=== PATIENT | male | born 1970 | race Asian ===

== ENCOUNTER 2025-01-19 13:30 | Emergency (ER) | payer OTHER ==
[~2025-01-19] VITALS: Ht 172.7 cm; Wt 86.2 kg
[~2025-01-19 13:30] MED LIST: AMOX500T2 PO
[2025-01-19] MEDS ORDERED: ONDANSETRON HCL/PF 4 MG/2 ML VIAL ONE (13:50)
[2025-01-19] MEDS: ONDANSETRON HCL/PF 4 MG/2 ML VIAL IVP ONE (13:58)
[2025-01-19] MEDS: IV NS 0.9% 1,000 ML BAG IV ONE (14:00)
[2025-01-19] MEDS ORDERED: METOCLOPRAMIDE HCL 10 MG/2 ML VIAL ONE (14:17)
[2025-01-19 14:22] LABS: PLATELET COUNT (AUTO) 309 K/uL (150-450); RED BLOOD CELL COUNT(AUTO) 5.19 MIL/uL (4.5-6.0); RED CELL DISTRIBUTION WIDTH 13.4 % (11.5-15.0); WHITE BLOOD COUNT (AUTO) 11.1 K/uL (4.3-11.0)
[2025-01-19] MEDS ORDERED: IOHEXOL-350 100 ML VIAL IV ONE (14:22)
[2025-01-19] MEDS ORDERED: CT SWABBABLE VALVE TRANS SET 1 EA INFUS.SET MC ONE (14:23)
[2025-01-19 14:29] LABS: CALCIUM, SERUM 9.3 mg/dL (8.5-10.1); CREATININE 1.1 mg/dL (0.6-1.3); SODIUM SERUM 138 mmol/L (136-145); UREA NITROGEN, BLOOD 11 mg/dL (7-18)
[2025-01-19] MEDS: METOCLOPRAMIDE HCL 10 MG/2 ML VIAL IV ONE (14:30)
[2025-01-19] MEDS ORDERED: dexaMETHasone SOD PHOSPHATE 1 ML ONE (14:41)
[2025-01-19] MEDS ORDERED: MECLIZINE HCL 25 MG TABLET ONE (14:41)
[2025-01-19 14:42] LABS: ASPARTATE AMINOTRANSFERASE 23 U/L (15-37); TOTAL PROTEIN, SERUM 8.4 g/dL (6.4-8.2)
[2025-01-19 14:47] LABS: NT-PRO BNP < 5 pg/mL (0-125)
[2025-01-19] MEDS: dexaMETHasone SOD PHOSPHATE 10 MG/ML VIAL IV ONE (14:50)
[2025-01-19] MEDS: MECLIZINE HCL 25 MG TABLET PO ONE (14:53)
[2025-01-19] MEDS ORDERED: ACET325T53 PO (15:31)
[2025-01-19] MEDS ORDERED: POLY17PO4 PO (15:31)
[2025-01-19] MEDS ORDERED: ONDANSETRON HCL/PF 4 MG/2 ML VIAL IV ONE (17:30)
[2025-01-19] MEDS ORDERED: MECLIZINE HCL 12.5 MG TABLET PO ONE (17:30)
[2025-01-19 19:10] VITALS: BP 126/77; TEMP 97.7; O2SAT 98
== END 2025-01-19 19:11 | disposition left against medical advice (07) ==
LOC: ER 13:30
DX: R42 Dizziness and giddiness (principal); R11.2 Nausea with vomiting, unspecified; R22.0 Localized swelling, mass and lump, head; R51.9 Headache, unspecified; R07.9 Chest pain, unspecified; I10 Essential (primary) hypertension; R06.02 Shortness of breath; Z91.010 Allergy to peanuts; Z91.018 Allergy to other foods; Z20.822 Contact with and (suspected) exposure to COVID-19
CPT/HCPCS: 99285; 70450; 96374; 96375; 71045; 96361; 87426; 93005; 70498; 70496; 85025; 80048; 80076; 36415; 84484; 83880; 82962; J8597; J1100; J2765; J2405; J7030; Q9967